=== PATIENT | female | born 1935 | race Caucasian/White ===

== ENCOUNTER 2024-05-17 14:55 | Emergency (ER) | payer MEDICARE ==
[~2024-05-17] VITALS: Ht 165.1 cm; Wt 77.1 kg
[2024-05-17 15:27] VITALS: PULSE 71; RESP 18; TEMP 98.7; O2SAT 99
== END 2024-05-17 16:32 | disposition home or self-care (01) ==
LOC: EDBD 15:08 → ER 15:08
DX: S00.83XA Contusion of other part of head, initial encounter (principal); W18.39XA Other fall on same level, initial encounter; Y93.01 Activity, walking, marching and hiking; Y92.89 Other specified places as the place of occurrence of the external cause; I10 Essential (primary) hypertension; K21.9 Gastro-esophageal reflux disease without esophagitis; Z86.12 Personal history of poliomyelitis
CPT/HCPCS: 70450; 72125; 99283